=== PATIENT | male | born 1965 | race Caucasian/White ===

== ENCOUNTER → 2016-08-22 | Outpatient (CLI) | payer BC ==
[2016-08-22 08:59] LABS: POTASSIUM 4.6 meq/L (3.8-5.2)
[2016-08-22 09:00] LABS: BILIRUBIN,TOTAL 0.7 mg/dL (0.3-1.2); CALCIUM 9.2 mg/dL (8.7-10.7); CREATININE 1.5 mg/dL (0.70-1.50)
[2016-08-22 09:02] LABS: LDL CHOLESTEROL,CALCULATED 101.8 mg/dL
[2016-08-24 09:01] LABS: MEAN BLOOD GLUCOSE (CALC) 167.08 mg/dL
[2016-08-24 09:03] LABS: HEMOGLOBIN A1C 7.6 % (4.2-6.0)
== END ==
LOC: MOB LAB 07:55
PROVIDERS: ATTEND Internal Medicine
DX: E11.9 Type 2 diabetes mellitus without complications (principal); Z79.4 Long term (current) use of insulin; E78.5 Hyperlipidemia, unspecified; I10 Essential (primary) hypertension; F17.220 Nicotine dependence, chewing tobacco, uncomplicated
CPT/HCPCS: 36415; 80053; 80061; 82043; 82550; 83036

== ENCOUNTER → 2017-03-06 | Outpatient (CLI) | payer BC ==
[2017-03-06 08:08] LABS: HEMOGLOBIN A1C 7.04 % (4.2-6.0)
[2017-03-06 08:15] LABS: CREATININE, URINE 40.6 MG/DL (15-500)
[2017-03-06 08:35] LABS: CALCIUM 9.3 mg/dL (8.7-10.7); CHOL/HDL RATIO 5.07 RATIO (0-4.0); LDL CHOLESTEROL,CALCULATED 56.6 mg/dL; SERUM ALBUMIN 4.5 g/dL (3.5-4.8)
== END ==
LOC: LAB 07:42
PROVIDERS: ATTEND Internal Medicine
DX: E11.9 Type 2 diabetes mellitus without complications (principal); E78.5 Hyperlipidemia, unspecified; I10 Essential (primary) hypertension; F17.220 Nicotine dependence, chewing tobacco, uncomplicated
CPT/HCPCS: 36415; 80053; 80061; 82043; 82550; 83036

== ENCOUNTER 2018-01-25 12:28 | Observation (INO) ==
[2018-01-25] MEDS ORDERED: Sodium Chloride 0.9% 1,000 ML PRIMARY IV ONE (12:46)
[2018-01-25] MEDS ORDERED: FAMOTIDINE 20 MG/2 ML VIAL IVP ONE (12:46)
[2018-01-25 13:15] LABS: Hematocrit [HCT] 46.9 % (42.0-52.0); Hemoglobin [HGB] 15.9 g/dL (14.0-18.0); MEAN CORPUSCULAR HEMOGLOBIN 26.8 PG (27-31); MEAN CORPUSCULAR HGB CONC 33.9 g/dL (33-37); MEAN PLATELET VOLUME 10.3 FL (7.4-12.2); RED BLOOD COUNT 5.94 10^6/uL (4.70-6.10)
[2018-01-25 13:25] LABS: BUN/CREATININE RATIO 22.66 (6-20); SERUM ALBUMIN 4.9 g/dL (3.5-4.8)
[2018-01-25 13:39] LABS: BAND NEUTROPHILS % 0 % (0-10); NEUTROPHILS % (MANUAL) 66 % (50-80); PLATELET MORPHOLOGY COMMENT NORMAL MORPHOLOGY (NORM); RBC MORPHOLOGY COMMENT NORMAL MORPHOLOGY (NORM); WBC MORPHOLOGY COMMENT SEE COMMENTS (NORM)
[2018-01-25 13:40] LABS: BASOPHILS % (MANUAL) 0 % (0-1); EOSINOPHILS % (MANUAL) 2 % (0-8); METAMYELOCYTES % 0 %; MONOCYTES % (MANUAL) 4 % (0-12); MYELOCYTES % 0 %; PROMYELOCYTES % 0 %
[2018-01-25] MEDS ORDERED: HYDROmorphone 2 MG/1 ML IVP ONE (14:28)
--- NOTE | 2018-01-25 15:36 | DI ---
CT Abdomen/Pelvis W Contrast,01/25/2018 12:47 PM: Clinical History: Abdominal pain Previous Exam: January 23, 2018 Findings: Multiple helically acquired CT images are obtained through the abdomen and pelvis following the intra venous administration of 47 cc of Isovue 300, and demonstrate clear lung bases. Oral and rectal contrast were also administered. Mild degenerative changes are noted of the posterior articulating facets. There is diffuse fatty infiltration of the liver. The gallbladder is unremarkable. There is a single calcified nodule within the right lobe of the liver. The spleen, adrenals and kidneys are normal. The pancreas is grossly normal. There are few shotty periportal lymph nodes. There is no retroperitoneal lymphadenopathy. The appendix is normal. The large and small bowel loops are also unremarkable. Evaluation of the anterior abdominal wall and the subcutaneous fat is unremarkable. Other vascular structures are unremarkable. The superior mesenteric vein and portal vein appears kely sly normal without filling defects. Impression: Diffuse fatty infiltration of liver, otherwise unremarkable.
[2018-01-25 15:59] LABS: BILIRUBIN,URINE NEGATIVE (NEG); CLARITY,URINE CLEAR (CLEAR); COLOR,URINE YELLOW (Y); GLUCOSE, URINE (UA) >=1000 mg/dL (NEG); OCCULT BLOOD,URINE NEGATIVE (NEG); PROTEIN,URINE NEGATIVE (NEG); UROBILINOGEN,URINE 0.2 EU/dL (0.2)
[2018-01-25 16:04] LABS: URINE SAMPLE TYPE CLEAN CATCH URINE
[2018-01-25] MEDS ORDERED: KETOROLAC 30 MG/1 ML VIAL IVP ONE (17:08)
--- NOTE | 2018-01-25 17:11 | CONSULT ---
Consult Note - Consult Consult Date: 01/25/18 Reason for Consult: PreOp Consulation : General Surgery Requesting Physician: Dr. Guzman, Dr. Lorenzana. Primary Care Provider: Kendall Guzman MD - History of Present Illness History of Present Illness: The patient is a 53-year-old male and asked to see for abdominal and back pain. The patient reports problems started on Thursday. 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 He thought he had overdone it. He had thought he had spent too much time in the heat. Thursday morning he tried to go to work but he complained his back pain was so bad that he presented to the emergency room. The pain seemed to be in his back and radiating around into his abdomen. He does state he ate something night and had a lot of diarrhea. He wondered if he had food poisoning. Again, on Thursday he presented to the emergency room. He had a CT scan of his abdomen and pelvis which showed some fatty infiltration of the liver but no acute findings. He did not get IV contrast because his creatinine was elevated at 1.9. His white count was slightly elevated at 11,000. His lipase was slightly elevated at 400. The rest of his studies were unremarkable. He was hydrated and discharged. He and his report that on Thursday he was miserable. He could hardly move. Again it seemed to be more back pain radiating around to the front. The pain is described as sharp and sometimes crampy. It worsens with a deep breath or movement. He denies nausea, vomiting , fever, chills, diarrhea, or constipation. He has never had a pain like this before. He has been eating. Patient saw Dr. Guzman, his primary care provider, this morning. He felt that the patient was worse. Patient says she has clearly gotten worse since Thursday. We discussed his case on the phone and I recommended he go to the emergency room for follow-up studies. Patient had a follow-up CT abdomen and pelvis with oral, rectal, and IV contrast. I reviewed the films several times myself and discussed it with the radiologist. There is no obvious pathology. Patient's white count is down to 10,900 range. His lipase is 309 or almost normal. The rest of his lab work is unremarkable other than glucosuria. He does seem uncomfortable but at times he is resting quietly. Review of Systems - Gastrointestinal Gastrointestinal / Abdominal: REPORTS: Abdominal Pain, See HPI Past Medical History Medical History: Diabetes, hypertension, dyslipidemia. Surgical History: No prior surgical procedures. Tobacco Use: Former Smoker In the Past 12 Months, Have Used or Abuse Any of the Following Substance: None Alcohol Use: Rarely Medication / Allergies Home Medications: Home Medications 3 Medication Instructions Recorded Confirmed Type pen needle, diabetic 31 gauge x 1 ea MISCELLANEOUS QPM #100 ea 07/28/17 Rx 12/30" rosuvastatin 40 mg tablet 40 mg PO QPM #90 tab 10/19/17 01/25/18 Rx aspirin 81 mg tablet,delayed 81 mg PO QDAY 01/25/18 01/25/18 History release blood sugar diagnostic strips See Dose Instructions .ROUTE 01/25/18 01/25/18 History .MEDSUPPLY #20 ea blood-glucose meter kit 1 ea MISCELLANEOUS QDAY #1 ea 01/25/18 01/25/18 History dapagliflozin 10 mg tablet 10 mg PO QDAY tab 01/25/18 01/25/18 History fenofibrate micronized 200 mg 200 mg PO QHS cap 01/25/18 01/25/18 History capsule hydrochlorothiazide 12.5 mg tablet 12.5 mg PO QDAY tab 01/25/18 01/25/18 History lancets 28 gauge 28 gauge MISCELLANEOUS TID PRN 01/25/18 01/25/18 History #270 ea lisinopril 40 mg tablet 20 mg PO QDAY tab 01/25/18 01/25/18 History omega 2-wvq-qxi-fish oil 1,000 mg 2 cap PO BID cap 01/25/18 01/25/18 History (120 mg-180 mg) capsule sitagliptin 50 mg-metformin 1,000 1 tab PO BID tab 01/25/18 01/25/18 History mg tablet Allergies/Adverse Reactions: Allergies 3 Allergy/AdvReac Type Severity Reaction Status Date / Time No Known Allergies Allergy Verified 01/25/18 12:37 Results - Labs CBC and BMP: 01/25/18 13:00 01/25/18 13:00 - Imaging Status: Image Reviewed by Me (An discussed with the radiologist.), Report Reviewed by Me Exam - Vitals Vital Signs: Vital Signs Temperature 97.6 F Temperature Source Temporal Artery Scan Pulse Rate [Pulse Oximeter 82 Right] Respiratory Rate 18 Blood Pressure [Left Arm] 132/92 Pulse Ox 98 Oxygen Delivery Method Room Air Height 5 ft 9 in Weight 225 lb - General General Appearance: Cooperative, Mild Distress (Worse with movement or deep breath.) - Respiratory Respiratory Exam: POSITIVE: Clear to Auscultation - Bilaterally, Breathing Non Labored - Cardiovascular Cardiovascular Exam: POSITIVE: RRR, No Murmur - GI/Abdominal GI/Abdominal Exam: POSITIVE: Distended, Guarding, Diminished Bowel Sounds Additional GI/Abdominal Exam Details: The patient's abdomen is full. It is hard for him to relax his abdominal wall musculature. When he does so the abdomen seems to be soft. Palpation in the left mid abdomen clearly elicits pain response. It is consistent with voluntary guarding. There is some mild percussive tenderness but no signs of peritoneal irritation. He reports bilateral costovertebral angle tenderness. There is no evidence of inguinal hernias bilaterally when the patient is examined lying down. There is no incarcerated umbilical hernia. It almost seems that this is more consistent with abdominal wall pain. - Rectal Rectal Exam: POSITIVE: Deferred - Neurological Neurological Exam: POSITIVE: Alert, Oriented x 3 - Psychiatric Psychiatric Exam: POSITIVE: Normal Affect, Normal Mood Assessment and Plan - Patient Problems (1) Abdominal pain of unknown etiology Current Visit: Yes Status: Acute Priority: High Onset Date: 01/22/18 Comment: The etiology of his abdominal and flank pain is unclear. At the present time there is no indication for surgical intervention. I have discussed this with the patient, his , and the emergency room physician Dr. Lorenzana. I don't think it's reasonable to send the patient home. I think he likely will have to return. Would consider admission to the hospitalist service for appropriate pain medications. Would recommend Toradol 30 mg IV every 6 hours as well as morphine or Dilaudid as needed for pain. Could even try an oral medicines such as Percocet. I would not give him more than clear liquids tonight in case something declares. Recommend comprehensive labs in the morning. If he is still in the hospital I will plan to see him in the morning. Patient does state he wants to go home but I told him I do not believe that is a good idea. Code(s): R10.9 - Unspecified abdominal pain
[2018-01-25] MEDS ORDERED: LIDOCAINE W/ SODIUM BICARB 0.5 ML SYR SUBD PRN (18:28)
[2018-01-25] MEDS ORDERED: Lactated Ringers 1,000 ML PRIMARY IV SCH (18:30)
[2018-01-25] MEDS ORDERED: HYDROmorphone 2 MG/1 ML IVP PRN (18:58)
[2018-01-25] MEDS ORDERED: ONDANSETRON 4 MG/2 ML VIAL IVP PRN (18:59)
--- NOTE | 2018-01-25 19:06 | PDOC ---
HPI - History of Present Illness Date of Service: 01/25/18 Time of Service: 19:00 Chief Complaint: Abdominal and back pain of 3 days' duration History of Present Illness: This is a 52 years old male with medical history significant for history of diabetes, hypertension and dyslipidemia who was referred to the ER from Dr. Guzman office because of back and lower abdominal pain. He said the pain started on Thursday started as lower back pain and then radiated to the sides and the pain was a constant worse with movement and maybe taking deep breath. The pain continued and there was no nausea or vomiting. He came into the ER on Thursday was found to have elevated creatinine of 1.[address] of the abdomen which was negative was done without contrast was given fluids and discharged home to follow-up with his primary. He said he continued to complain from pain and then more abdominal pain now in addition to the back pain went to see his primary Dr. Guzman was sent into the ER. In the ER he had the repeat CT with oral and IV contrast still showed some fatty liver but no other abnormalities. He was seen by Dr. Bowling he was tender in the left midabdomen and because of the way he looks being uncomfortable he was admitted to the hospital. Patient said his pain when he came in was 8 out of 10 now is 3 worse with movement. He said he's hungry wants to eat. He did report diarrhea on but that's resolved. He took his pills today. No fever or chills. No bleeding. Past Medical History Medical History: 1.Diabetes. 2. Hypertension. 3. dyslipidemia. Surgical History: No prior surgical procedures. Past Social History: does not smoke does not drink and no drugs Tobacco Use: Never Smoker Do you dip or chew tobacco: Yes (prior) In the Past 12 Months, Have Used or Abuse Any of the Following Substance: None Alcohol Use: Rarely Medication / Allergies Home Medications: Home Medications 3 Medication Instructions Recorded Confirmed Type pen needle, diabetic 31 gauge x 1 ea MISCELLANEOUS QPM #100 ea 07/28/17 Rx 5/16" rosuvastatin 40 mg tablet 40 mg PO QPM #90 tab 10/19/17 01/25/18 Rx aspirin 81 mg tablet,delayed 81 mg PO QDAY 01/25/18 01/25/18 History release blood sugar diagnostic strips See Dose Instructions .ROUTE 01/25/18 01/25/18 History .MEDSUPPLY #20 ea blood-glucose meter kit 1 ea MISCELLANEOUS QDAY #1 ea 01/25/18 01/25/18 History dapagliflozin 10 mg tablet 10 mg PO QDAY tab 01/25/18 01/25/18 History fenofibrate micronized 200 mg 200 mg PO QHS cap 01/25/18 01/25/18 History capsule hydrochlorothiazide 12.5 mg tablet 12.5 mg PO QDAY tab 01/25/18 01/25/18 History lancets 28 gauge 28 gauge MISCELLANEOUS TID PRN 01/25/18 01/25/18 History #270 ea lisinopril 40 mg tablet 20 mg PO QDAY tab 01/25/18 01/25/18 History omega 8-nac-ptn-fish oil 1,000 mg 2 cap PO BID cap 01/25/18 01/25/18 History (120 mg-180 mg) capsule sitagliptin 50 mg-metformin 1,000 1 tab PO BID tab 01/25/18 01/25/18 History mg tablet Allergies/Adverse Reactions: Allergies 3 Allergy/AdvReac Type Severity Reaction Status Date / Time No Known Allergies Allergy Verified 01/25/18 12:37 Review of Systems - Review of Systems All Systems: Reviewed & No Additional Complaints Except as Stated Exam - Vitals Vital Signs: Vital Signs Temperature 97.6 F Temperature Source Temporal Artery Scan Pulse Rate [Pulse Oximeter 82 Right] Respiratory Rate 18 Blood Pressure [Left Arm] 132/92 Pulse Ox 98 Oxygen Delivery Method Room Air Height 5 ft 9 in Weight 225 lb - General Additional General Exam Details: Was laying in bed does not appear in distress. However he is avoiding eye contact. - Head Head Exam: Normal Inspection - Eye Eye Exam: POSITIVE: Normal Appearance - ENT ENT Exam: POSITIVE: Normal Exam - Neck Neck Exam: Normal Inspection - Respiratory Respiratory Exam: POSITIVE: Clear to Auscultation - Bilaterally - Cardiovascular Cardiovascular Exam: POSITIVE: RRR - GI/Abdominal GI/Abdominal Exam: POSITIVE: Normal Bowel Sounds Additional GI/Abdominal Exam Details: He doesn't seem to relax his abdominal muscles. He refuses to bend his knee says it is because of pain in his back. There is some tenderness in the left midabdomen. I don't think there is rebound though. There is some tenderness of the costovertebral angle more on the left. bowel sounds present - Rectal Rectal Exam: POSITIVE: Deferred - External Exam: POSITIVE: Deferred - Extremities Extremities Exam: POSITIVE: Normal Inspection - Back Back Exam: POSITIVE: Normal Inspection - Neurological Neurological Exam: POSITIVE: Alert, Oriented x 3, CN II-XII Intact, No Facial Droop - Psychiatric Psychiatric Exam: POSITIVE: Flat Affect Results - Labs CBC and BMP: 01/25/18 13:00 01/25/18 13:00 - Imaging Status: Report Reviewed by Me (CT abdomen Diffuse fatty infiltration of liver, otherwise unremarkable.) Assessment and Plan - Patient Problems (1) Abdominal pain of unknown etiology Current Visit: Yes Status: Acute Priority: High Onset Date: 01/22/18 Comment: Unclear etiology. Will write for pain medication and some on IV fluid. Wrote for clear liquid. Once he knew that he is going to be on clear liquid he became upset and he said he wants to eat and will leave however we managed to convince him to stay. I'm not sure though he will take a clear liquid. I did explain that we want to start with clear liquids first and see whether he tolerate that and make sure that there will be no worsening of his symptoms the next few hours. will Repeat his labs in the morning. Code(s): R10.9 - Unspecified abdominal pain (2) Acute low back pain Current Visit: No Status: Acute Comment: Maybe musculoskeletal. I guess we'll see how things looks tomorrow then will decide whether we need to do an MRI of his back. Code(s): M54.5 - Low back pain (3) Diabetes mellitus Current Visit: No Status: Acute Comment: He is not sure what medication he takes at night. He apparently is on some kind of insulin at night. We did ask the to bring his medication. Will check his blood sugar. We'll hold the metformin because of the IV contrast. Code(s): E11.9 - Type 2 diabetes mellitus without complications Qualifiers: Diabetes mellitus type: type 2 Diabetes mellitus prison insulin use: without prison use Diabetes mellitus complication status: without complication Qualified Code(s): E11.9 - Type 2 diabetes mellitus without complications (4) Dyslipidemia Current Visit: No Status: Acute Onset Date: 10/12/13 Comment: Continue his previous medications. Code(s): E78.5 - Hyperlipidemia, unspecified (5) Elevated blood protein Current Visit: Yes Status: Acute Comment: there is an element of dehydration. will give fluids but will send for protein electrophoresis tomorrow. Code(s): E88.09 - Other disorders of plasma-protein metabolism, not elsewhere classified
[2018-01-25] MEDS ORDERED: KETOROLAC 15 MG/1 ML VIAL IVP PRN (19:11)
[2018-01-25] MEDS ORDERED: Rosuvastatin Tab 20 MG TAB PO SCH (21:00)
[2018-01-25] MEDS ORDERED: INSULIN DEGLUDEC SUBCUT SCH (21:00)
[2018-01-25] MEDS ORDERED: FENOFIBRATE PO SCH (21:00)
[2018-01-25] MEDS: Sodium Chloride 0.9% 1,000 ML PRIMARY IV SCH (23:08)
[2018-01-25] MEDS: oxyCODONE-ACETAMINOPHEN 5-325 TAB PO PRN (23:40)
[2018-01-26] MEDS: oxyCODONE-ACETAMINOPHEN 5-325 TAB PO PRN ×2 (03:21→07:09)
[2018-01-26] MEDS ORDERED: DAPAGLIFLOZIN 10 MG PO SCH (04:00)
[2018-01-26 04:30] LABS: BASOPHILS # (AUTO) 0.08 10*3/UL; EOSINOPHILS # (AUTO) 0.31 10*3/UL; EOSINOPHILS % (AUTO) 3.8 % (0-8); LYMPHOCYTES # (AUTO) 2.41 10*3/uL; MEAN CORPUSCULAR HEMOGLOBIN 26.6 PG (27-31); MEAN CORPUSCULAR HGB CONC 33.3 g/dL (33-37); MEAN CORPUSCULAR VOLUME 79.8 FL (80-90); MEAN PLATELET VOLUME 10.1 FL (7.4-12.2); MONOCYTES # (AUTO) 0.48 10*3/UL (0.3-0.8); MONOCYTES % (AUTO) 5.9 % (5-15); NEUTROPHILS # (AUTO) 4.83 10*3/UL; NEUTROPHILS % (AUTO) 59.2 % (50-80); RED BLOOD COUNT 5.26 10^6/uL (4.70-6.10)
[2018-01-26 04:31] LABS: PLATELET MORPHOLOGY COMMENT NORMAL MORPHOLOGY (NORM); RBC MORPHOLOGY COMMENT NORMAL MORPHOLOGY (NORM); WBC MORPHOLOGY COMMENT NORMAL MORPHOLOGY (NORM)
[2018-01-26 04:40] LABS: BUN/CREATININE RATIO 23.33 (6-20); SERUM ALBUMIN 3.9 g/dL (3.5-4.8)
[2018-01-26] MEDS ORDERED: PANTOPRAZOLE IV 40 MG VIAL IVP SCH (07:00)
--- NOTE | 2018-01-26 07:51 | PDOC ---
Abdomen/Flank HPI - General Chief Complaint: Abdomen Pain Stated Complaint: abdominal pain Date Seen by Provider: 01/25/18 Time Seen by Provider: 12:35 Source: POSITIVE: Patient, Old records Exam Limitations: POSITIVE: No limitations Nurse's Notes Reviewed & Considered: Yes - History of Present Illness Initial Comments: The patient is a 52-year-old male. He has a 3-1/2 day history of abdominal pain and back pain. He was seen in the emergency room here 2 days ago and had a CT scan of the abdomen and pelvis without contrast which was read as normal. During that visit his white blood cell count and lipase were mildly elevated. Patient has a history of diabetes mellitus and his creatinine at that time was 1.9, and therefore intravenous contrast was not used for the CT scan. Patient was advised to follow-up with his primary care provider, Dr. Guzman. Patient saw Dr. Guzman today and stated that his condition had not improved. Dr. Guzman then contacted Dr. Bowling, surgeon, who referred the patient again to the emergency room for further evaluation. Patient has not had any fevers or chills. No nausea, vomiting, diarrhea, melena, hematochezia or hematemesis. He 's not had any history of surgeries. History of hypertension. Patient states that his pain has migrated somewhat from his flank areas into the lower abdomen , left greater than right. Body Location Affected: REPORTS: Abdomen Timing: REPORTS: Gradual, Getting Worse Duration: >24 hours (3-1/2 days) Severity: Moderate Quality: REPORTS: "Pain" Abdominal Pain Onset Location: REPORTS: Generalized abdomen (Especially lower abdomen, left greater than right), Flank Abdominal Pain Radiation: REPORTS: No radiation Context: REPORTS: None Modifying Factors: improves with: Other (Discomfort on direct palpation) Associated Symptoms: REPORTS: Denies symptoms Similar Symptoms Previously: Yes (as above) Recent Care Received: REPORTS: Recently Seen, Treated by MD (As above) Any Prior Injuries Related to Current Complaint?: No - Patient Home Medications Home Medications: Home Medications pen needle, diabetic 31 gauge x 12/30" 1 ea MISCELLANEOUS QPM #100 ea 07/28/17 rosuvastatin 40 mg tablet 40 mg PO QPM #90 tab 10/19/17 aspirin 81 mg tablet,delayed release 81 mg PO QDAY 01/25/18 blood sugar diagnostic strips See Dose Instructions .ROUTE .MEDSUPPLY #20 ea 07/04 blood-glucose meter kit 1 ea MISCELLANEOUS QDAY #1 ea 01/25/18 dapagliflozin 10 mg tablet 10 mg PO QDAY tab 01/25/18 fenofibrate micronized 200 mg capsule 200 mg PO QHS cap 01/25/18 hydrochlorothiazide 12.5 mg tablet 12.5 mg PO QDAY tab 01/25/18 lancets 28 gauge 28 gauge MISCELLANEOUS TID PRN #270 ea 01/25/18 lisinopril 40 mg tablet 20 mg PO QDAY tab 01/25/18 omega 7-vsc-dxl-fish oil 1,000 mg (120 mg-180 mg) capsule 2 cap PO BID cap 07/04 sitagliptin 50 mg-metformin 1,000 mg tablet 1 tab PO BID tab 01/25/18 - Patient Allergies Allergies/Adverse Reactions: Allergies 3 Allergy/AdvReac Type Severity Reaction Status Date / Time No Known Allergies Allergy Verified 01/25/18 12:37 Past Medical History - heen HEENT History: Denies History Cardiovascular History: Hypertension, Hyperlipidemia Respiratory History: Denies History Gastrointestinal History: Denies History Genitourinary History: Denies History Endocrine History: Type 2 Diabetes (oral), Type 2 Diabetes (insulin) Musculoskeletal History: Denies History Prosthesis or Implant: No Neurological History: Denies History Blood Disorders: Denies History Psychiatric History: Denies History Male Reproductive History: Denies History Cancer History: Denies History In Past Year Been Physically Harmed or Verbally Threatened: No History of MDRO: No Tobacco Use: Never Smoker In the Past 12 Months, Have Used or Abuse Any Substance: None Previous Surgical History: No Significant Family History: Heart disease, Cancer, Diabetes, Hypertension Past Medical History Reviewed: Reviewed - No Changes ROS - Limitations ROS Limitations: No Limitations Constitution: REPORTS: Denies Symptoms Cardiovascular: REPORTS: Denies Cardiac Symptoms Respiratory: REPORTS: Denies Resp Symptoms Neurological: REPORTS: Denies Neuro Symptoms Gastrointestinal: REPORTS: Abdominal Pain Endocrine: REPORTS: Denies Symptoms Musculoskeletal: REPORTS: Denies MS Symptoms Genitourinary: REPORTS: Denies Symptoms Eyes: REPORTS: Denies Symptoms ENT: REPORTS: Denies Symptoms Skin: REPORTS: Denies Skin Symptoms Lympathic: REPORTS: Denies Lympathic Symptoms Immunologic: POSITIVE: Denies Symptoms Psychiatric: POSITIVE: Denies Psych Symptoms Abdominal/Flank Pain PE - General Appearance General Appearance: POSITIVE: Alert, Cooperative, No Acute Distress, No Evidence of Trauma - HEENT HEENT: POSITIVE: Head Inspection Nml, Eyes Inspection Nml, Ears Inspection Nml, Nose Inspection Nml, Oral/Dental Inspect. Nml, Pharynx Inspect. Nml, PERRL, EOMI - Neck Neck: POSITIVE: Normal Inspection, No Apparent Injury - Respiratory Respiratory: POSITIVE: No Respiratory Distress, Breath Sounds Normal, Chest Non- Tender - Cardiovascular Cardiovascular: POSITIVE: Regular Rate and Rhythm, Heart Sounds Normal, Equal Pulses, Strong Pulses Peripheral Pulses: Radial (R): 2+, Radial (L): 2+ - Chest Chest: POSITIVE: Non Tender - Abdomen Abdomen: Soft: (All Quadrants), Normal Bowel Sounds: (All Quadrants), No Splenomegaly: (All Quadrants), No Hepatomegaly: (All Quadrants), No Guarding: ( All Quadrants), No Rebound: (All Quadrants), No Palpable Pulse: (All Quadrants) , No Palpabale Mass: (All Quadrants), No Distention: (All Quadrants), No Rigidity: (All Quadrants), Tenderness Noted: (RUQ), (LUQ), (RLQ), (LLQ) Additional Abdominal Details: Abdominal examination shows bowel sounds to be present. Patient has some poorly localized abdominal discomfort on direct palpation, especially the lower abdomen and flank areas, left greater than right. No masses, organomegaly or rebound. - Back Back: POSITIVE: Normal Inspection - Skin Skin: POSITIVE: Intact, Normal For Race, Warm, Dry, No Rash - Extremities Extremity: Non-Tender: (All Extremities), Normal ROM: (All Extremities), Normal Inspection: (All Extremities) - Neurological Neurological: POSITIVE: Oriented X3, medical clerk Normal As Tested, Motor Normal, Sensation Normal, 5, 6 - Psychological Psychiatric: POSITIVE: Affect Appropriate, Mood Appropriate Images - Complete Complete: 1 - Area described abdominal discomfort 2 - Some flank discomfort Abdomen Progress - Results Reviewed by me Xrays/CTs/US Reviewed by me: Yes Discussed with Radiologist: Yes Radiology Findings: CT scan abdomen and pelvis with IV contrast, oral contrast and rectal contrast done; read as normal by radiologist. Lab Results Reviewed by Me: Yes (21.5) CBC and BMP: 01/26/18 04:21 01/26/18 04:21 Lab Results:: Laboratory Results 01/25/18 01/25/18 01/25/18 Range/Units 13:00 13:00 15:45 WBC 10.89 H (4.8-10.8) 10^3/uL RBC 5.94 (4.70-6.10) 10^6/uL Hgb 15.9 (14.0-18.0) g/dL Hct 46.9 (42.0-52.0) % MCV 79.0 L (80-90) FL MCH 26.8 L (27-31) PG MCHC 33.9 (33-37) g/dL RDW Std Deviation 42.5 (39-50) fL RDW Coeff of Geraldine 14.8 H (11.5-14.5) % Plt Count 223 (140-350) 10*3/uL MPV 10.3 (7.4-12.2) FL Neutrophils % (Manual) 66 (50-80) % Band Neutrophils % 0 (0-10) % Lymphocytes % (Manual) 28 (10-50) % Monocytes % (Manual) 4 (0-12) % Eosinophils % (Manual) 2 (0-8) % Basophils % (Manual) 0 (0-1) % Metamyelocytes % 0 % Myelocytes % 0 % Promyelocytes % 0 % Blast Cells 0 (0-1) % WBC Morphology Comment See comments (NORM) Plt Morphology Comment Normal morphology (NORM) RBC Morph Comment Normal morphology (NORM) Sodium 139 (135-145) meq/L Potassium 4.3 (3.8-5.2) meq/L Chloride 104 (98-112) meq/L Carbon Dioxide 21 L (23-33) meq/L Anion Gap 14 (5-20) BUN 34 H (7-22) mg/dL Creatinine 1.5 (0.70-1.50) mg/dL Estimated GFR 49 (>60 ml/min/1.73m(2)) BUN/Creatinine Ratio 22.66 H (6-20) Glucose 93 (78-110) mg/dL Calculated Osmolality 295.0 H (267-292) mOsm/kg Calcium 9.5 (8.7-10.7) mg/dL Total Bilirubin 0.7 (0.3-1.2) mg/dL AST 22 (21-57) IU/L ALT 47 (21-72) IU/L Alkaline Phosphatase 55 (38-126) IU/L Total Protein 8.2 H (6.1-8.0) g/dL Albumin 4.9 H (3.5-4.8) g/dL Globulin 3.3 (2.50-4.10) g/dL Albumin/Globulin Ratio 1.40 (1.3-2.0) mg/g Amylase 62 (30-110) U/L Lipase 309 H (23-300) IU/L Ur Collection Type Clean catch urine Urine Color Yellow (Y) Urine Clarity Clear (CLEAR) Urine pH 5.0 (5.0-8.5) Ur Specific [place] 1.010 (1.005-1.030) Urine Protein Negative (NEG) mg/dl Urine Glucose (UA) >=1000 (NEG) mg/dL Urine Ketones Negative (NEG) Urine Occult Blood Negative (NEG) Urine Nitrate Negative (NEG) Urine Bilirubin Negative (NEG) Urine Urobilinogen 0.2 (0.2) EU/dL Ur Leukocyte Esterase Negative (NEG) Ur Culture Indicated? Culture not set - Patient's Progress Pain Medication Addressed: POSITIVE: Yes (Patient given Toradol, 30 mg IV) School/Work Release Addressed: POSITIVE: Not Applicable Re-examine Time: 16:50 Re-Examine Comment: Condition essentially unchanged. Patient evaluated by Dr. Bowling, surgeon, in the emergency room. Patient admitted by Dr. Rainey, hospitalist with consultation to Dr. Bowling, for further evaluation and treatment. Status: POSITIVE: Unchanged, Re-Examined - Consult Consult (If Yes, Name of Consulting MD & Time Called): Yes (Dr. Bowling and Dr. Rainey, [id number]) Consulting MD will see pt:: POSITIVE: [facility]mit Counseled: POSITIVE: Patient, Family, RE: Lab Results, RE: Radiology Results, RE : DX, RE: Need for F/U Patient Care Time - Estimated PCT Patient Care Time (In Minutes): 70 Vital Signs - Recent Vital Signs Vital Signs: Vital Signs (Last 8 hours) Temp Pulse Resp BP Pulse Ox 01/26/18 06:36 96.9 F 69 19 123/72 95 01/26/18 04:04 94 01/26/18 04:02 97.7 F 77 20 121/79 94 - VS Reviewed Vital Signs Reviewed: Yes Discharge Clinical Impression: Abdominal pain Discharge Disposition: Admit to Inpatient Condition: Stable Date Decision to Admit to Inpatient: 01/25/18 Time Decision to Admit to Inpatient: 16:40
[2018-01-26] MEDS: Sodium Chloride 0.9% 1,000 ML PRIMARY IV SCH (08:55)
[2018-01-26] MEDS ORDERED: LISINOPRIL 20 MG TABLET PO SCH (09:00)
--- NOTE | 2018-01-26 09:06 | PDOC(PROG) ---
Date and Time of Service: 01/26/2018 9:06 AM Interval History: Subjective He feels better his abdomen is not as bloated as yesterday he said. His pain is mainly now is in the lower back. Worse when he moves. His abdomen is not as tender as yesterday. Objective : Data - Labs CBC and BMP: 01/26/18 04:21 01/26/18 04:21 Objective : Exam - General General Appearance: No Acute Distress, Cooperative - Head Head Exam: Normal Inspection - Eye Eye Exam: Normal Appearance - ENT ENT Exam: Normal Exam - Neck Neck Exam: Normal Inspection - Respiratory Respiratory Exam: Clear to Auscultation - Bilaterally - Cardiovascular Cardiovascular Exam: RRR - GI/Abdominal GI/Abdominal Exam: Normal Bowel Sounds, Non Distended, Soft, No Organomegaly Additional GI/Abdominal Exam Details: He is still somewhat tensing his abdomen with the physical exam but not as much as yesterday I think. He is not as tender as yesterday. There is minimal area of tenderness in the mid left abdomen. The back seem to be pump and still operator. He is still tensing his back muscles. There is tenderness in the left lower back. He is able to lift his leg up more today but still he feel pain he said in his back when he do that. However he was able to sit and walk. - External Exam: Deferred Exam: Deferred - Extremities Extremities Exam: Normal Inspection - Back Back Exam: Normal Inspection - Neurological Neurological Exam: Alert, Oriented x 3, Normal Gait, CN II-XII Intact, No Facial Droop, Speech Intact / Clear - Psychiatric Psychiatric Exam: Normal Affect - Integumentary Integumentary Exam: Normal Color Assessment and Plan - Patient Problems (1) Abdominal pain of unknown etiology Current Visit: Yes Status: Acute Priority: High Onset Date: 01/22/18 Comment: His abdominal pain seemed to be less today compared to yesterday. His pain is mainly in the back. This may be referred pain. if Dr. Bowling agrees then I think we can advance his diet. Code(s): R10.9 - Unspecified abdominal pain (2) Acute low back pain Current Visit: No Status: Acute Comment: I will order an MRI of his back today, if negative we will discharge him home after that. Looks musculoskeletal type of pain. Code(s): M54.5 - Low back pain (3) Diabetes mellitus Current Visit: No Status: Acute Comment: We'll hold the metformin because of the contrast that he had. Code(s): E11.9 - Type 2 diabetes mellitus without complications Qualifiers: Diabetes mellitus type: type 2 Diabetes mellitus merchandising coordinator insulin use: without skilled nursing use Diabetes mellitus complication status: without complication Qualified Code(s): E11.9 - Type 2 diabetes mellitus without complications (4) Dyslipidemia Current Visit: No Status: Acute Onset Date: 10/12/13 Comment: Same medications Code(s): E78.5 - Hyperlipidemia, unspecified (5) Elevated blood protein Current Visit: Yes Status: Acute Comment: This is normalized today. Probably from dehydration. I did send for protein electrophoresis. Code(s): E88.09 - Other disorders of plasma-protein metabolism, not elsewhere classified
--- NOTE | 2018-01-26 09:38 | PDOC(PROG) ---
Date and Time of Service: 01/26/2018 9:30 AM. Interval History: Feels better. He reports his pain is all in his back and his left flank today. He is hungry and wants to eat. He denies flatus or a bowel movement. He denies nausea or vomiting. No fever or chills. He does not feel as bloated. He is voiding. The pain still gets worse with a deep breath or movement. The pain seems superficial in the abdominal wall musculature. He denies deep internal pain. Objective : Data - Labs CBC and BMP: 01/26/18 04:21 01/26/18 04:21 - Vital Signs Vital Signs and I&O: Vital Signs - Last Taken Temperature 96.9 F 01/26/18 06:36 Pulse Rate 69 01/26/18 06:36 Respiratory Rate 19 01/26/18 06:36 Blood Pressure 123/72 01/26/18 06:36 Pulse Ox 95 01/26/18 06:36 Intake and Output (24hr x 4 totals) 01/24/18 01/25/18 01/26/18 01/27/18 05:59 05:59 05:59 05:59 Intake Total 360 / 360 560 / 560 Balance 360 / 360 560 / 560 Objective : Exam - General General Appearance: No Acute Distress, Cooperative - Respiratory Respiratory Exam: Clear to Auscultation - Bilaterally, Breathing Non Labored - Cardiovascular Cardiovascular Exam: RRR, No Murmur - GI/Abdominal GI/Abdominal Exam: Normal Bowel Sounds, Non Distended, Soft Additional GI/Abdominal Exam Details: Abdomen is much softer. Benign on the right. Left abdomen is softer as well. Palpation of the abdominal wall musculature in his left flank elicits pain response. He has some left costovertebral angle tenderness as well. Minimal right costovertebral angle tenderness. No signs of peritoneal irritation. Again this seems consistent with abdominal wall pain or back pain radiating to his abdominal wall. No evidence of intra-peritoneal process. - Neurological Neurological Exam: Alert, Oriented x 3 - Psychiatric Psychiatric Exam: Normal Affect, Normal Mood Assessment and Plan - Patient Problems (1) Abdominal pain of unknown etiology Current Visit: Yes Status: Acute Priority: High Onset Date: 01/22/18 Comment: Today his pain seems more back and flank. Seems more abdominal wall musculature. Etiology remains unclear. No evidence of intra-abdominal pathology. Agree with MRI of his back. If no significant findings, he can probably be discharged home on anti-inflammatories and pain medications and follow-up with his primary care provider. I will check on him tomorrow if he is still here. Again I see no indications for general surgical intervention at this time. Have asked the nursing staff to try heat pad. Please call for any significant changes. Code(s): R10.9 - Unspecified abdominal pain
[2018-01-26 11:14] VITALS: BP 115/62; RESP 17; TEMP 97.1; O2SAT 94
--- NOTE | 2018-01-26 15:06 | DI ---
MRI Lumbar Spine WWO Contrast,01/26/2018 9:04 AM: Clinical History: Abdominal pain Previous Exam: CT abdomen pelvis performed January 25, 2018 Findings: Multiplanar MR images are obtained through the lumbar spine without contrast, and demonstrate anatomi c alignment without fractures. Vertebral body height is preserved. Intervertebral disc height is also preserved. Spinal cord descends normally with normal course, caliber and signal characteristics. The re is a normal conus at the L1 level. The major vascular flow voids are unremarkable. Visualized portions of the kidneys are normal. The paraspinal musculature is unremarkable. The abnormal area of sclerosis within the right T12 pedicle/vertebral body demonstrates a well circum scribed sclerotic focus of low signal. There is no associated edema and no evidence of cortical disru ption or associated soft tissue mass. There is no abnormal enhancement. Individual intervertebral disc spaces: L1/2: No significant stenosis. L2/3: No significant stenosis. L3/4: No significant stenosis. L4/5: No significant stenosis. L5/S1: No significant stenosis. Impression: Area in question involving the right T12 vertebral level corresponds with an area of low signal most consistent with an enostosis. There is no edema or enhancement. No significant central canal nor neural foraminal narrowing.
--- NOTE | 2018-01-26 15:44 | DCSUMMARY ---
Hospitalization Summary Admit Date: 01/25/2018 Discharge Date: 01/26/18 Hospital Course: Discharge diagnoses 1. Low back pain looks musculoskeletal 2. Abdominal pain unclear etiology may be referred pain 3. Mildly Elevated lipase resolved unclear reason. Maybe secondary to recent gastroenteritis 4. History of diabetes 5. History of hypertension 6. History of dyslipidemia 7. Fatty liver Hospital course This is a 52 years old male with past medical history significant for history of diabetes, hypertension and dyslipidemia who was referred to the ER from Dr. Guzman office because of back and lower abdominal pain. He said the pain started on Thursday started at the lower back and then radiated to the sides there was no nausea no vomiting. The pain was constant and worse with movements and with taking deep breath. He came into the ER on Thursday and was found to have a creatinine of 1.[address] of the abdomen was negative and was given fluids and discharged home to follow-up with his primary. He said he continued to complain from pain and then more abdominal pain in addition to the back pain he went to see his primary Dr. Guzman was sent into the ER. In the ER he had repeat CT with oral and IV contrast and showed some fatty liver but no other abnormalities. He was seen by Dr. Bowling's he was tender in the left midabdomen because he looked uncomfortable he was still in pain Dr. Bowling suggested admission to the hospital. Patient said when I saw him that his pain level was 8 out of 10 when he came in and went down to 3 after the medications. He did report diarrhea last but that's resolved. There was no fever or chills and no bleeding. His initial exam he seems to not to relax his abdominal muscles he refused to bend his knee because that would hurt his back. There was some tenderness in left midabdomen. There was no rebound though. There Was also some costovertebral angle tenderness, bowel sounds were present. The pain looked more musculoskeletal pain rather than peritoneal pain. We put him on fluid then pain medications. The next day he felt better in terms of the abdominal pain and main complaint was low back pain worse with movement and taking deep breath. He was able to get up and walk go to the bathroom on his own. On abdominal examination he seems to be able to relax more with some minimal tenderness but the abdomen seems softer. No rebound still bowel sounds present. Still have the lower back tenderness. We did an MRI of his back and there were no significant abnormalities. We did advance his diet he tolerated diet with no issues. I did tell him we did not find a clear explanation for his symptoms. His symptoms look more musculoskeletal kind of back pain. I did tell him sometimes shingles present like this but the thing that does not fit is that his pain seems to be bilateral rather than unilateral. I did tell him to watch for a rash in case he developed it. I did write for pain medication and suggested over the counter anti-inflammatory. He need follow-up with his primary. Did instruct him to come back if new symptoms developed Including fever or vomiting or diarrhea or worsening pain. He did have when he initially came in elevated protein but I think is secondary to the dehydration that improved with IV fluid I did send though protein electrophoresis which need to be followed up later on as an outpatient. Did instruct to hold the metformin for 48 hours after the contrast. He did have mildly elevated lipase the normalized quickly, the clinical picture thought did not fit pancreatits. Discharge instruction Diet regular Activity as started Medications Current Medication(s) 3 Medication Instructions Recorded Confirmed Type pen needle, diabetic 31 gauge x 1 ea MISCELLANEOUS QPM #100 ea 07/28/17 Rx 5/16" rosuvastatin 40 mg tablet 40 mg PO QPM #90 tab 10/19/17 01/25/18 Rx aspirin 81 mg tablet,delayed 81 mg PO QDAY 01/25/18 01/25/18 History release blood sugar diagnostic strips See Dose Instructions .ROUTE 01/25/18 01/25/18 History .MEDSUPPLY #20 ea blood-glucose meter kit 1 ea MISCELLANEOUS QDAY #1 ea 01/25/18 01/25/18 History dapagliflozin 10 mg tablet 10 mg PO QDAY tab 01/25/18 01/25/18 History fenofibrate micronized 200 mg 200 mg PO QHS cap 01/25/18 01/25/18 History capsule hydrochlorothiazide 12.5 mg tablet 12.5 mg PO QDAY tab 01/25/18 01/25/18 History lancets 28 gauge 28 gauge MISCELLANEOUS TID PRN 01/25/18 01/25/18 History #270 ea lisinopril 40 mg tablet 20 mg PO QDAY tab 01/25/18 01/25/18 History omega 5-okt-phu-fish oil 1,000 mg 2 cap PO BID cap 01/25/18 01/25/18 History (120 mg-180 mg) capsule sitagliptin 50 mg-metformin 1,000 1 tab PO BID tab 01/25/18 01/25/18 History mg tablet Tresiba 65 unit SUBCUT DAILY@1600 01/26/18 Rx oxyCODONE/APAP 5/325 Tab 1 - 2 tab PO Q4H PRN #25 tab 01/26/18 Rx [Percocet 5/325 Tab] Follow-up with PCP 1-2 weeks Condition at discharge was stable for discharge Exam - Vitals Vital Signs: Vital Signs Temperature 97.1 F Temperature Source Temporal Artery Scan Pulse Rate [Pulse Oximeter 72 Right] Respiratory Rate 17 Blood Pressure [Right Arm] 115/62 Blood Pressure [Left Arm] 123/72 Pulse Ox 94 Oxygen Delivery Method Room Air Height 5 ft 9 in Weight 226 lb 14.4 oz Patient Problems - Patient Problem List (1) Abdominal pain of unknown etiology Status: Acute Onset Date: 01/22/18 Priority: High Code(s): R10.9 - Unspecified abdominal pain Category: Medical (2) Acute low back pain Status: Acute Code(s): M54.5 - Low back pain Category: Medical (3) Diabetes mellitus Status: Acute Code(s): E11.9 - Type 2 diabetes mellitus without complications Qualifiers: Diabetes mellitus type: type 2 Diabetes mellitus assisted insulin use: without assisted use Diabetes mellitus complication status: without complication Qualified Code(s): E11.9 - Type 2 diabetes mellitus without complications Category: Medical (4) Dyslipidemia Status: Acute Onset Date: 10/12/13 Code(s): E78.5 - Hyperlipidemia, unspecified Category: Medical (5) Elevated blood protein Status: Acute Code(s): E88.09 - Other disorders of plasma-protein metabolism, not elsewhere classified Category: Medical
[2018-01-26] MEDS ORDERED: INSULIN DEGLUDEC 200 UNIT/ML SUBCUT SCH ×3 (16:00→21:00)
[2018-01-26] MEDS ORDERED: FISH OIL PO SCH (16:00)
[2018-01-26] MEDS ORDERED: Rosuvastatin Tab 20 MG TAB PO SCH (16:00)
[2018-01-26] MEDS ORDERED: FENOFIBRATE MICRONIZED 200 MG PO SCH (16:00)
[2018-01-27] MEDS ORDERED: LISINOPRIL 20 MG TABLET PO SCH (04:00)
[2018-01-28 10:20] LABS: A/G RATIO 1.07; ALB PEP SER 3.3 g/dL (3.4-4.7); ALP1 GLOB 0.3 g/dL (0.1-0.3); ALP2 GLOB 0.8 g/dL (0.6-1.0)
== END 2018-01-26 15:35 | disposition home or self-care (01) ==
LOC: MED/SURG 12:28 → ER 12:28
PROVIDERS: ADMIT Internal Medicine; ATTEND Internal Medicine